=== PATIENT | female | born 1995 | race Asian ===

== ENCOUNTER 2023-02-15 15:56 | Inpatient (IN) ==
--- NOTE | 2023-02-15 16:06 | ED Triage Note ---
Date of Service February 15, 2023 History of Present Illness This patient was briefly evaluated while in triage. An abbreviated physical exam was performed. This patient is a 27-year-old Female who presents to the ED for evaluation of abdominal pain. She notes pain in left side. The pain is spreading into L side and abdomen region. Pain x 2 days but worsened today. She is . No bleeding. She notes burning urination. Currently 7 weeks . Pt is febrile at this time. Physical Exam GENERAL: 27 year old female. In no acute distress. SKIN: No lesions or rashes. HEART: Regular rate and rhythm. LUNGS: Clear to auscultation. ABDOMEN: Bowel sounds normoactive. No tenderness of palpation. NEURO: Alert and oriented. No deficits. MUSCULOSKELETAL: No deformities to inspection of the extremities. PSYCH: Patient is pleasant and answers all questions appropriately. Initial orders for labs and / or imaging were placed and patient was placed in the waiting area until a bed is available. Please see further documentation for the full ED course.
[2023-02-15 17:16] LABS: Adenovirus PCR Not Detected (NotDetected); Bordetella parapertussis PCR Not Detected (NotDetected); Bordetella pertussis PCR Not Detected (NotDetected); Chlamydia pneumoniae PCR Not Detected (NotDetected); Coronavirus 229E PCR Not Detected (NotDetected); Coronavirus CoV-2 (COVID19)PCR Not Detected (NotDetected); Coronavirus HKU1 PCR Not Detected (NotDetected); Coronavirus NL63 PCR Not Detected (NotDetected); Coronavirus OC43PCR Not Detected (NotDetected); Human Metapneumovirus PCR Not Detected (NotDetected); Influenza A PCR Not Detected (NotDetected); Influenza B PCR Not Detected (NotDetected); Mycoplasma pneumoniae PCR Not Detected (NotDetected); Parainfluenza Virus 1 PCR Not Detected (NotDetected); Parainfluenza Virus 2 PCR Not Detected (NotDetected); Parainfluenza Virus 3 PCR Not Detected (NotDetected); Parainfluenza Virus 4 PCR Not Detected (NotDetected); Respiratory Syncytial VirusPCR Not Detected (NotDetected); Rhinovirus/Enterovirus PCR Not Detected (NotDetected)
[2023-02-15 17:50] LABS: Basophils # (auto) 0.01 K/uL (0.00-0.20); Basophils % (auto) 0.1 %; Hemoglobin 12.3 g/dl (12.0-16.0); Immature Granulocytes # (auto) 0.04 K/uL (0.01-0.20); Immature Granulocytes % (auto) 0.3 %; Lymphocytes # (auto) 0.77 K/uL (1.20-3.40); Lymphocytes % (auto) 5.1 %; Mean Corpuscular Hemoglobin 28.8 pg (25.0-34.0); Mean Corpuscular Hgb Conc 34.2 g/dL (32.0-36.0); Mean Corpuscular Volume 84.3 fL (80.0-100.0); Mean Platelet Volume 12.9 fL (9.4-12.4); Monocytes # (auto) 0.99 K/uL (0.11-0.59); Monocytes % (auto) 6.6 %; Neutrophils % (auto) 87.9 %; Platelet Count 156 K/uL (130-400); RDW Coefficient of Variation 13.2 % (11.5-14.5); RDW Standard Deviation 40.7 fL (36.4-46.3); Red Blood Count 4.27 M/uL (4.20-5.40); White Blood Count 15.01 K/ul (4.8-10.8)
[2023-02-15 18:00] LABS: Alanine Aminotransferase 14 U/L (7-52); Albumin Globulin Ratio 1.2 (0.9-2); Albumin Level 4.1 gm/dl (3.4-5.0); Alkaline Phosphatase 59 U/L (34-104); Anion Gap 9 (3-11); Aspartate Aminotransferase 18 U/L (13-39); BUN Creatinine Ratio 9.5 (10-20); Bilirubin,Total 0.6 mg/dl (0.2-1.0); Blood Urea Nitrogen 6 mg/dl (6-23); Calcium 9.3 mg/dl (8.6-10.3); Carbon Dioxide 22 mmol/L (21-32); Chloride 100 mmol/L (98-107); Est GFR (African American) 144.5 ml/min; Est GFR (Non-African American) 124.7 ml/min; Globulin 3.4 gm/dl (2.5-4.0); Glucose 103 mg/dl (70-99(Fasting)); Lipase 4 U/L (11-82); Magnesium 1.8 mg/dl (1.7-2.4); Potassium 3.8 mmol/L (3.5-5.1); Sodium 131 mmol/L (136-145); Total Protein 7.5 gm/dl (6.0-8.3)
[2023-02-15 18:05] LABS: Troponin I High Sensitivity 5.5 pg/ml (0-14)
[2023-02-15 18:11] LABS: INR 1.1 (0.9-1.1); Prothrombin Time 12.1 Seconds (9.0-12.0)
[2023-02-15 18:14] LABS: Thyroid Stimulating Hormone 0.089 uIu/ml (0.300-4.500)
[2023-02-15 18:49] LABS: T4 Free Thyroxine 0.92 ng/dl (0.61-1.60)
--- NOTE | 2023-02-15 18:51 | Ultrasound Report ---
US renal/blad retro comp CLINICAL HISTORY: L flank pain, fever TECHNIQUE: Multiple sonographic real-time images of the kidneys and bladder were obtained. COMPARISON: None available at the time of this dictation. FINDINGS: The right kidney measures 11.3 cm in length, and the left kidney measures 9.7 cm in length. The right kidney is normal in size, contour, cortical thickness, and echogenicity. Pelviectasis is se en without hydronephrosis. No renal lesion is identified. The left kidney is normal in size, contour, cortical thickness and echogenicity. Pelviectasis is see n without hydronephrosis. No renal lesion is identified. The bladder is partially distended. Bilateral jets are seen. IMPRESSION: Unremarkable examination and in particular no evidence of hydronephrosis. ACT 112: Negative or not required by law. Electronically signed by: Tato Danielson M.D. 02/15/2023 6:49 PM
[2023-02-15 18:52] LABS: Appearance Urine Cloudy (Clear); Bacteria Urine Automated 1+ (Negative); Bilirubin Urine Negative (Negative); Blood Urine 1+ (Negative); Color Urine Yellow; Epithelial Cell Urine Auto 0-5 /lpf (0-5); Glucose Urine UA Negative (Negative); Ketones Urine 2+ (Negative); Leukocyte Esterase Urine 3+ (Negative); Nitrite Urine Negative (Negative); Protein Urine Negative (Negative); RBC Urine Automated 0-4 /hpf (0-4); Specific Gravity Urine 1.005 (1.000-1.030); Urobilinogen Urine Negative (Negative); WBC Urine Automated >30 /hpf (0-5)
--- NOTE | 2023-02-15 18:53 | Ultrasound Report ---
US OB <= 14 weeks fetus CLINICAL HISTORY: Fever, , dysuria, L flank pain Technique: Real-time sonographic images of the pelvic contents were obtained with transabdominal and transvaginal technique. COMPARISON: None available at the time of this dictation. FINDINGS: An intrauterine gestational sac measures 2.6 cm in diameter corresponding to a gestational age of 7 w eeks 2 days. And a pole measures 1.3 cm in crown-rump length compatible with gestational age of 7 weeks 4 days. heart rate measures 1 65 bpm. Right ovary is not seen due to overlying bowel. Left ovary measures 3.6 x 3.3 x 3.1 cm with satisfact ory vascular flow. A corpus luteum is noted. IMPRESSION: Single live intrauterine as above. ACT 112: Negative or not required by law. Electronically signed by: Tato Danielson M.D. 02/15/2023 6:52 PM
[2023-02-15] MEDS ORDERED: ACETAMINOPHEN 1,000 MG/100 ML VIAL IV STA (19:22)
[2023-02-15] MEDS ORDERED: SODIUM CHLORIDE 0.9% 1,000 ML IV ONE (19:22)
[2023-02-15] MEDS ORDERED: cefTRIAXone SODIUM 1,000 MG/50 ML BAG IV STA (19:23)
--- NOTE | 2023-02-15 20:40 | History & Physical Report ---
Date of Service February 15, 2023 Assessment & Plan (1) Urinary tract infection: Plan: -Febrile, leukocytosis, tachycardic- meeting SIRS criteria on admission, associated infected urinalysis -Sepsis secondary to suspected urinary source in patient -Ceftriaxone initiated in ER, will continue for now -Renal US negative for ascending infection -UCx, BCx pending -Tylenol 1000 mg q8h for fever control and pain -Currently hemodynamically stable with mild tachycardia to 100s -Monitor CBC (2) Hyponatremia: Plan: -Na 130 on admission -Likely hypovolemic hyponatremia from poor oral intake and emesis losses -S/p 1L NSS bolus in ER -Started on LR maintenance IVF -Monitor BMP (3) Low TSH level: Plan: -TSH 0.089 on admission with fT4 0.92, fT3 3.96 -Suspect subclinical hyperthyroidism in , though with pt's reported history of thyroid abnormality in the past, we will evaluate further -Thyroid antibodies and immunoglobulin pending -Thyroid US ordered -Unclear which medication pt was on in the past for her thyroid issue (possibly methimazole/PTU though these are not routinely given as injections)- will need further clarification (4) : Plan: -HCG 113,026 on admission - US- An intrauterine gestational sac measures 2.6 cm in diameter corresponding to a gestational age of 7 weeks 2 days. And a pole measures 1.3 cm in crown-rump length compatible with gestational age of 7 weeks 4 days. heart rate measures 1 65 bpm. -OB consulted in ED -Transvaginal US pending Plan FENGI: Regular Code status: Full DVT prophylaxis: Low-risk, ambulation Isolation: None Disposition: Medical/surgical History of Present Illness Chief Complaint: Abdominal pain Primary Care Provider: NO PCP Pt is 27 yo EGA 7wks by FTUS presenting with fever and abdominal pain. Pt states she has had ongoing subjective fevers, chills, lower abdominal pain, dysuria, urinary frequency, nausea for past 3-4 days. She did have several bouts of NBNB emesis including 2 today. She has had poor oral intake during this time. She came to ER today due to intolerable pain. Pt arrived to ER tachycardic to 100s-120s and febrile to 38.4 C. Initial evaluation significant for WBC 15, Na 131, TSH 0.089, free T4 0.92, HCG 113,026, UA with +LE, WBCs, bacteria. Renal US wnl, US with single intrauterine . ER interventions include ceftriaxone 1g, Tylenol 1000 mg IV, NSS 1L bolus. At present, pt reports mild improvement in pain since Tylenol administration. She states she had some thyroid cyst/abnormality 3-4 years ago in [facility] for which she was treated with months of medication delivered as injection, believes medication may have started with "P" but cannot recall accurately. Allergies Allergy/AdvReac Type Severity Reaction Status Date / Time No Known Allergies Allergy Unverified 02/15/23 20:17 Home Medications Medication Instructions Recorded Confirmed Type Stomach Settle Gumies 2 tabs PO QAM PRN Nausea 02/15/23 02/15/23 History vit no.95-ferrous 1 tab PO DAILY 02/15/23 02/15/23 History fumarate 28 mg-folic acid 800 mcg tablet () Past Med/Surg History Medical History (Updated 02/16/23 @ 18:21 by Wolfgang Liu DO) No pertinent family history No pertinent past medical history Surgical History (Updated 02/16/23 @ 06:59 by Robina Landis MD) No pertinent past surgical history S/P appendectomy Social History Smoking Status: Never smoker Second Hand Exposure: No; Do You Dip or Chew Tobacco: No; Tobacco Cessation Education Requested by Patient: No Hx Alcohol Use: No Hx Substance Use: No Preferred Language: [place] Leonean Communication Ability: Effective Video Manager Required: No Current Living Situation: Spouse Other Information That Helps Us Care for You: No Feels Safe at Home: Yes Safety Concerns: Feels Safe At This Time Assistive Devices: None Review of Systems Review of Systems: Per HPI/Subjective Physical Exam Physical Exam: General: tired-appearing, no acute distress HEENT: PERRL, EOMI, conjunctivae clear without injection, anicteric sclerae, dry mucous membranes, clear oropharynx without exudate or erythema Neck: supple, trachea midline, no thyromegaly, no JVD, no cervical lymphadenopathy CV: RRR, normal S1 and S2, no murmurs Resp: CTAB, no increased work of breathing, no crackles or wheezes Abd: Soft, tender to periumbilical area and suprapubic area, nondistended, no guarding or rebound, no hepatosplenomegaly MSK: Normal bulk of all four extremities Neuro: AOx3, no focal motor or sensory deficits Skin: no rashes or lesions, warm and dry Ext: no LE peripheral edema or erythema, capillary refill <2s in all four extre mities, 2+ LE peripheral pulses b/l Results & Data Results & Data Vital Signs (Past 12 Hours) Vital Signs Temp Pulse Pulse Resp BP BP Pulse Ox 02/15/23 19:56 109 H 16 112/68 100 02/15/23 16:03 38.4 C H 121 H 16 101/72 92 O2 Del Method 02/15/23 19:56 Room Air 02/15/23 16:03 Room Air Supervising Physician Co-Signing Physician Notes Attending addendum: I have physically seen this patient, have supervised the medical residents activities, and agree with the H&P unless as otherwise noted. Assessment and Plan: Urinary tract infection/7 weeks - Follow urine culture sensitivities Given ceftriaxone 1 g IV in ED, continue daily Continue IV fluids as noted Pelvic ultrasound negative, ultrasound negative, renal ultrasound negative for a sending infection Tylenol 1 g p.o. every 8 hours as needed for mild pain or fever Low TSH level- TSH 0.089, Free T4 0.92 Order thyroid ultrasound Order antithyroid antibody panel Order thyroid-stimulating globulin Patient reports history of being on medications in the past 7-week - OB to see while in hospital Resident Activity Tracking Resident Involvement: Resident Care Provided Care Provided: Adult Hospital Medicine
[2023-02-15] MEDS ORDERED: ONDANSETRON INJ 2 MG/ML 2 ML VIAL IV PRN (21:11)
[2023-02-15] MEDS: LACTATED RINGER'S 1,000 ML IV SCH (22:42)
[2023-02-15] MEDS ORDERED: ACETAMINOPHEN 325 MG TAB PO ONE (23:12)
--- NOTE | 2023-02-16 01:41 | Emergency Department Note ---
History of Present Illness General Chief complaint: Abdominal Pain Stated complaint: abd pain, 7 weeks, vomit Time Seen by Provider: 02/15/23 19:22 History of Present Illness Provider complaint: Abdominal pain dysuria fever nausea vomiting Onset (ago): day(s) 2 Maximum Pain Intensity: 5 27-year-old G1, P0 at 7 weeks gestation presents to the emergency department for fever abdominal pain dysuria nausea and vomiting. Patient's symptoms have been going on for last 2 days. Patient states she cannot keep anything down. She reports that dysuria with burning-like sensation. She reports no pain except for when urinating. She denies any vaginal bleeding. Patient reports suprapubic abdominal discomfort. No flank pain. No chest pain or difficulty breathing. No headache. Home Medications Medication Instructions Recorded Confirmed Type Stomach Settle Gumies 2 tabs PO QAM PRN Nausea 02/15/23 02/15/23 History vit no.95-ferrous 1 tab PO DAILY 02/15/23 02/15/23 History fumarate 28 mg-folic acid 800 mcg tablet () Allergies Allergy/AdvReac Type Severity Reaction Status Date / Time No Known Allergies Allergy Unverified 02/15/23 20:17 Past Med/Surg History Medical History No pertinent family history No pertinent past medical history Surgical History No pertinent past surgical history Social History Smoking Status: Never smoker Second Hand Exposure: No; Do You Dip or Chew Tobacco: No; Tobacco Cessation Education Requested by Patient: No Hx Alcohol Use: No Hx Substance Use: No Preferred Language: Latvian Communication Ability: Effective Fence Supervisor Required: No Current Living Situation: Spouse Other Information That Helps Us Care for You: No Feels Safe at Home: Yes Safety Concerns: Feels Safe At This Time Physical Exam Vital Signs Vital Signs - 24 hr 02/15/23 16:03 02/15/23 19:56 Temperature 38.4 C H Temperature Source Temporal Artery Scan Pulse Rate 121 H Pulse Rate [Apical] 109 H Respiratory Rate 16 16 Respiratory Effort / Characteristics Non-Labored Spontaneous Respiratory Depth Normal Blood Pressure 101/72 Blood Pressure [Left Arm] 112/68 Blood Pressure Mean 81 Blood Pressure Mean [Left Arm] 82 Pulse Oximetry 92 100 Oxygen Delivery Method Room Air Room Air Sepsis Recent Fever Within 48 Hours Yes Sepsis New/Unexplained Change in Mental Status No Sepsis Action Taken by Nursing Physician Notified Physical Exam GENERAL: She is oriented to person, place, and time. She appears well-developed and well-nourished. She does not appear distressed. HENT: Exam performed. -Head: Normocephalic and atraumatic. -Right Ear: External ear normal. No mastoid erythema -Left Ear: External ear normal. No mastoid erythema -Mouth/Throat: The oropharynx is clear and moist. No trismus in the jaw. No dental abscesses or uvula swelling. No oropharyngeal exudate or tonsillar abscesses. EYES: Conjunctivae and EOM are normal.Right eye exhibits no discharge. Left eye exhibits no discharge. No scleral icterus. NECK: Normal range of motion. Neck supple. No JVD present. No tracheal deviation and normal range of motion present. CV: Tachycardic rate, regular rhythm, normal heart sounds and intact distal pulses. There is no peripheral edema. Palpable radial pulses bue. PULM/CHEST: Effort normal and breath sounds normal. No respiratory distress. No stridor. She has no wheezes. She has no rales. -Chest Wall: She exhibits no tenderness. ABD: The abdomen is soft. Bowel sounds are normal. She has no distension. No mass is present. There is no tenderness. There is no rebound, no guarding, no Dyer's sign and no tenderness at McBurney's point. Rovsig negative MUSC/SKEL: Normal range of motion. There is no peripheral edema, tenderness or deformity. NEURO: Motor and sensation grossly intact. SKIN: Skin is warm and dry. She is not diaphoretic. PSYCH: She has a normal mood and affect. Behavior is normal. Judgment and thought content normal. Course Course 1921: The patient was evaluated in room B5. A complete history and physical exam was performed Cardiac monitoring: An order was placed for continuous cardiac monitoring. The monitor shows a rate of 100 with sinus rhythm interpreted by me 1947: Vital signs stable. Labs show leukocytosis of 15.01. Lactic acid is still pending. Urinalysis is concerning for UTI. ultrasound and renal ultrasound within normal limits. Patient states she is unable to keep anything down by mouth. Patient be treated with IV antibiotics. Discussed with pharmacy and stated Rocephin would be safe at this point in the patient's . [facility] . At this point of the patient's , it is thought extremely unlikely that the patient will need any sort of obstetric care, however if the patient develops any obstetric issues while admitted to the hospital, LITHARGE SUPERVIS[employer] Dr. Landis was paged and I made her aware that she will be on routine consult. Patient will be admitted to Dr. Mendoza's team. Administered Medications Lactated Ringer's (Lr) 1,000 mls @ 80 mls/hr IV .[id number] BARB Stop: 02/16/23 22:10 Last Admin: 02/15/23 22:42 Dose: 80 mls/hr Documented By: AVANI Discontinued Medications Acetaminophen (Acetaminophen 325 Mg Tab) 650 mg PO ONCE ONE Stop: 02/15/23 23:13 Last Admin: 02/15/23 23:21 Dose: 650 mg Documented By: AVANI Acetaminophen (Ofirmev) 1,000 mg in 100 mls @ 400 mls/hr IV NOW STA Stop: 02/15/23 19:36 Last Infusion: 02/15/23 20:19 Dose: 0 mls/hr Documented By: Admin: 02/15/23 19:50 Dose: 400 mls/hr Documented By: MELANIE Sodium Chloride (Nss) 1,000 mls @ 999 mls/hr IV .[id number] ONE Stop: 02/15/23 20:22 Last Infusion: 02/15/23 21:05 Dose: 0 mls/hr Documented By: Admin: 02/15/23 19:50 Dose: 999 mls/hr Documented By: MELANIE Ceftriaxone Sodium (Rocephin) 1,000 mg in 50 mls @ 100 mls/hr IV NOW STA Stop: 02/15/23 19:52 Last Infusion: 02/15/23 21:05 Dose: 0 mls/hr Documented By: Admin: 02/15/23 20:18 Dose: 100 mls/hr Documented By: MELANIE Medical Decision Making Laboratory Data Attestation: I reviewed the patient's lab results. 02/15/23 17:06 02/15/23 17:06 Lab Results 02/15/23 02/15/23 02/15/23 Range/Units 16:05 17:06 17:06 WBC 15.01 H (4.8-10.8) K/ul RBC 4.27 (4.20-5.40) M/uL Hgb 12.3 (12.0-16.0) g/dl Hct 36.0 L (37.0-47.0) % MCV 84.3 (80.0-100.0) fL MCH 28.8 (25.0-34.0) pg MCHC 34.2 (32.0-36.0) g/dL RDW Std Deviation 40.7 (36.4-46.3) fL RDW Coeff of Freya 13.2 (11.5-14.5) % Plt Count 156 (130-400) K/uL MPV 12.9 H (9.4-12.4) fL Immature Gran % (Auto) 0.3 % Neut % (Auto) 87.9 % Lymph % (Auto) 5.1 % [place] % (Auto) 6.6 % Eos % (Auto) 0.0 % Baso % (Auto) 0.1 % Neut # (Auto) 13.20 H (1.40-6.50) K/uL Lymph # (Auto) 0.77 L (1.20-3.40) K/uL [place] # (Auto) 0.99 H (0.11-0.59) K/uL Eos # (Auto) 0.00 (0.00-0.50) K/uL Baso # (Auto) 0.01 (0.00-0.20) K/uL Immature Gran # (Auto) 0.04 (0.01-0.20) K/uL PT (9.0-12.0) Seconds INR (0.9-1.1) APTT (21.0-31.0) Seconds PTT Ratio Sodium (136-145) mmol/L Potassium (3.5-5.1) mmol/L Chloride (98-107) mmol/L Carbon Dioxide (21-32) mmol/L Anion Gap (3-11) BUN (6-23) mg/dl Creatinine (0.6-1.2) mg/dl Est Cr Clr Drug Dosing Est GFR ( Amer) ml/min Est GFR (Non-Af Amer) ml/min BUN/Creatinine Ratio (10-20) Glucose (70-99(Fasting)) mg/dl Lactate 1.3 (0.4-2.0) mmol/L Calcium (8.6-10.3) mg/dl Magnesium (1.7-2.4) mg/dl Total Bilirubin (0.2-1.0) mg/dl AST (13-39) U/L ALT (7-52) U/L Alkaline Phosphatase (34-104) U/L Troponin I High Sens (0-14) pg/ml Total Protein (6.0-8.3) gm/dl Albumin (3.4-5.0) gm/dl Globulin (2.5-4.0) gm/dl Albumin/Globulin Ratio (0.9-2) Lipase (11-82) U/L Procalcitonin (0-0.5) ng/ml TSH (0.300-4.500) uIu/ml Free T4 (0.61-1.60) ng/dl Free T3 (2.3-4.2) pg/ml HCG, Quant mIU/ml Urine Color Urine Appearance (Clear) Urine pH (4.5-7.5) Ur Specific [place] (1.000-1.030) Urine Protein (Negative) Urine Glucose (UA) (Negative) Urine Ketones (Negative) Urine Blood (Negative) Urine Nitrite (Negative) Urine Bilirubin (Negative) Urine Urobilinogen (Negative) Ur Leukocyte Esterase (Negative) Urine WBC (Auto) (0-5) /hpf Urine RBC (Auto) (0-4) /hpf U Hyaline Cast (Auto) (0-5) /lpf U Epithel Cells (Auto) (0-5) /lpf Urine Bacteria (Auto) (Negative) Adenovirus (PCR) Not Detected (NotDetected) B. pertussis DNA (PCR) Not Detected (NotDetected) B.parapertussis DNA PCR Not Detected (NotDetected) C. pneumoniae DNA (PCR) Not Detected (NotDetected) Coronavirus OC43 (PCR) Not Detected (NotDetected) Coronavirus HKU1 (PCR) Not Detected (NotDetected) Coronavirus 229E (PCR) Not Detected (NotDetected) SARS-CoV-2 (PCR) Not Detected (NotDetected) Coronavirus NL63 (PCR) Not Detected (NotDetected) Human Metapneumovir PCR Not Detected (NotDetected) Influenza Type A (PCR) Not Detected (NotDetected) Influenza Type B (PCR) Not Detected (NotDetected) M. pneumoniae (PCR) Not Detected (NotDetected) Parainfluenza 1 (PCR) Not Detected (NotDetected) Parainfluenza 2 (PCR) Not Detected (NotDetected) Parainfluenza 3 (PCR) Not Detected (NotDetected) Parainfluenza 4 (PCR) Not Detected (NotDetected) RSV (PCR) Not Detected (NotDetected) Entero/Rhino (PCR) Not Detected (NotDetected) 02/15/23 02/15/23 02/15/23 Range/Units 17:06 17:06 17:06 WBC (4.8-10.8) K/ul RBC (4.20-5.40) M/uL Hgb (12.0-16.0) g/dl Hct (37.0-47.0) % MCV (80.0-100.0) fL MCH (25.0-34.0) pg MCHC (32.0-36.0) g/dL RDW Std Deviation (36.4-46.3) fL RDW Coeff of Freya (11.5-14.5) % Plt Count (130-400) K/uL MPV (9.4-12.4) fL Immature Gran % (Auto) % Neut % (Auto) % Lymph % (Auto) % [place] % (Auto) % Eos % (Auto) % Baso % (Auto) % Neut # (Auto) (1.40-6.50) K/uL Lymph # (Auto) (1.20-3.40) K/uL [place] # (Auto) (0.11-0.59) K/uL Eos # (Auto) (0.00-0.50) K/uL Baso # (Auto) (0.00-0.20) K/uL Immature Gran # (Auto) (0.01-0.20) K/uL PT 12.1 H (9.0-12.0) Seconds INR 1.1 (0.9-1.1) APTT 27.0 (21.0-31.0) Seconds PTT Ratio 1.0 Sodium 131 L (136-145) mmol/L Potassium 3.8 (3.5-5.1) mmol/L Chloride 100 (98-107) mmol/L Carbon Dioxide 22 (21-32) mmol/L Anion Gap 9 (3-11) BUN 6 (6-23) mg/dl Creatinine 0.63 (0.6-1.2) mg/dl Est Cr Clr Drug Dosing Not Reportable Est GFR ( Amer) 144.5 ml/min Est GFR (Non-Af Amer) 124.7 ml/min BUN/Creatinine Ratio 9.5 L (10-20) Glucose 103 H (70-99(Fasting)) mg/dl Lactate (0.4-2.0) mmol/L Calcium 9.3 (8.6-10.3) mg/dl Magnesium 1.8 (1.7-2.4) mg/dl Total Bilirubin 0.6 (0.2-1.0) mg/dl AST 18 (13-39) U/L ALT 14 (7-52) U/L Alkaline Phosphatase 59 (34-104) U/L Troponin I High Sens 5.5 (0-14) pg/ml Total Protein 7.5 (6.0-8.3) gm/dl Albumin 4.1 (3.4-5.0) gm/dl Globulin 3.4 (2.5-4.0) gm/dl Albumin/Globulin Ratio 1.2 (0.9-2) Lipase 4 L (11-82) U/L Procalcitonin (0-0.5) ng/ml TSH 0.089 L (0.300-4.500) uIu/ml Free T4 0.92 (0.61-1.60) ng/dl Free T3 (2.3-4.2) pg/ml HCG, Quant 522680 mIU/ml Urine Color Urine Appearance (Clear) Urine pH (4.5-7.5) Ur Specific [place] (1.000-1.030) Urine Protein (Negative) Urine Glucose (UA) (Negative) Urine Ketones (Negative) Urine Blood (Negative) Urine Nitrite (Negative) Urine Bilirubin (Negative) Urine Urobilinogen (Negative) Ur Leukocyte Esterase (Negative) Urine WBC (Auto) (0-5) /hpf Urine RBC (Auto) (0-4) /hpf U Hyaline Cast (Auto) (0-5) /lpf U Epithel Cells (Auto) (0-5) /lpf Urine Bacteria (Auto) (Negative) Adenovirus (PCR) (NotDetected) B. pertussis DNA (PCR) (NotDetected) B.parapertussis DNA PCR (NotDetected) C. pneumoniae DNA (PCR) (NotDetected) Coronavirus OC43 (PCR) (NotDetected) Coronavirus HKU1 (PCR) (NotDetected) Coronavirus 229E (PCR) (NotDetected) SARS-CoV-2 (PCR) (NotDetected) Coronavirus NL63 (PCR) (NotDetected) Human Metapneumovir PCR (NotDetected) Influenza Type A (PCR) (NotDetected) Influenza Type B (PCR) (NotDetected) M. pneumoniae (PCR) (NotDetected) Parainfluenza 1 (PCR) (NotDetected) Parainfluenza 2 (PCR) (NotDetected) Parainfluenza 3 (PCR) (NotDetected) Parainfluenza 4 (PCR) (NotDetected) RSV (PCR) (NotDetected) Entero/Rhino (PCR) (NotDetected) 02/15/23 02/15/23 02/15/23 Range/Units 17:06 17:06 18:30 WBC (4.8-10.8) K/ul RBC (4.20-5.40) M/uL Hgb (12.0-16.0) g/dl Hct (37.0-47.0) % MCV (80.0-100.0) fL MCH (25.0-34.0) pg MCHC (32.0-36.0) g/dL RDW Std Deviation (36.4-46.3) fL RDW Coeff of Freya (11.5-14.5) % Plt Count (130-400) K/uL MPV (9.4-12.4) fL Immature Gran % (Auto) % Neut % (Auto) % Lymph % (Auto) % [place] % (Auto) % Eos % (Auto) % Baso % (Auto) % Neut # (Auto) (1.40-6.50) K/uL Lymph # (Auto) (1.20-3.40) K/uL [place] # (Auto) (0.11-0.59) K/uL Eos # (Auto) (0.00-0.50) K/uL Baso # (Auto) (0.00-0.20) K/uL Immature Gran # (Auto) (0.01-0.20) K/uL PT (9.0-12.0) Seconds INR (0.9-1.1) APTT (21.0-31.0) Seconds PTT Ratio Sodium (136-145) mmol/L Potassium (3.5-5.1) mmol/L Chloride (98-107) mmol/L Carbon Dioxide (21-32) mmol/L Anion Gap (3-11) BUN (6-23) mg/dl Creatinine (0.6-1.2) mg/dl Est Cr Clr Drug Dosing Est GFR ( Amer) ml/min Est GFR (Non-Af Amer) ml/min BUN/Creatinine Ratio (10-20) Glucose (70-99(Fasting)) mg/dl Lactate (0.4-2.0) mmol/L Calcium (8.6-10.3) mg/dl Magnesium (1.7-2.4) mg/dl Total Bilirubin (0.2-1.0) mg/dl AST (13-39) U/L ALT (7-52) U/L Alkaline Phosphatase (34-104) U/L Troponin I High Sens (0-14) pg/ml Total Protein (6.0-8.3) gm/dl Albumin (3.4-5.0) gm/dl Globulin (2.5-4.0) gm/dl Albumin/Globulin Ratio (0.9-2) Lipase (11-82) U/L Procalcitonin 0.13 (0-0.5) ng/ml TSH (0.300-4.500) uIu/ml Free T4 (0.61-1.60) ng/dl Free T3 3.96 (2.3-4.2) pg/ml HCG, Quant mIU/ml Urine Color Yellow Urine Appearance Cloudy A (Clear) Urine pH 6.0 (4.5-7.5) Ur Specific [place] 1.005 (1.000-1.030) Urine Protein Negative (Negative) Urine Glucose (UA) Negative (Negative) Urine Ketones 2+ H (Negative) Urine Blood 1+ H (Negative) Urine Nitrite Negative (Negative) Urine Bilirubin Negative (Negative) Urine Urobilinogen Negative (Negative) Ur Leukocyte Esterase 3+ H (Negative) Urine WBC (Auto) >30 H (0-5) /hpf Urine RBC (Auto) 0-4 (0-4) /hpf U Hyaline Cast (Auto) 1-5 (0-5) /lpf U Epithel Cells (Auto) 0-5 (0-5) /lpf Urine Bacteria (Auto) 1+ H (Negative) Adenovirus (PCR) (NotDetected) B. pertussis DNA (PCR) (NotDetected) B.parapertussis DNA PCR (NotDetected) C. pneumoniae DNA (PCR) (NotDetected) Coronavirus OC43 (PCR) (NotDetected) Coronavirus HKU1 (PCR) (NotDetected) Coronavirus 229E (PCR) (NotDetected) SARS-CoV-2 (PCR) (NotDetected) Coronavirus NL63 (PCR) (NotDetected) Human Metapneumovir PCR (NotDetected) Influenza Type A (PCR) (NotDetected) Influenza Type B (PCR) (NotDetected) M. pneumoniae (PCR) (NotDetected) Parainfluenza 1 (PCR) (NotDetected) Parainfluenza 2 (PCR) (NotDetected) Parainfluenza 3 (PCR) (NotDetected) Parainfluenza 4 (PCR) (NotDetected) RSV (PCR) (NotDetected) Entero/Rhino (PCR) (NotDetected) 02/15/23 Range/Units 19:40 WBC (4.8-10.8) K/ul RBC (4.20-5.40) M/uL Hgb (12.0-16.0) g/dl Hct (37.0-47.0) % MCV (80.0-100.0) fL MCH (25.0-34.0) pg MCHC (32.0-36.0) g/dL RDW Std Deviation (36.4-46.3) fL RDW Coeff of Freya (11.5-14.5) % Plt Count (130-400) K/uL MPV (9.4-12.4) fL Immature Gran % (Auto) % Neut % (Auto) % Lymph % (Auto) % [place] % (Auto) % Eos % (Auto) % Baso % (Auto) % Neut # (Auto) (1.40-6.50) K/uL Lymph # (Auto) (1.20-3.40) K/uL [place] # (Auto) (0.11-0.59) K/uL Eos # (Auto) (0.00-0.50) K/uL Baso # (Auto) (0.00-0.20) K/uL Immature Gran # (Auto) (0.01-0.20) K/uL PT (9.0-12.0) Seconds INR (0.9-1.1) APTT (21.0-31.0) Seconds PTT Ratio Sodium (136-145) mmol/L Potassium (3.5-5.1) mmol/L Chloride (98-107) mmol/L Carbon Dioxide (21-32) mmol/L Anion Gap (3-11) BUN (6-23) mg/dl Creatinine (0.6-1.2) mg/dl Est Cr Clr Drug Dosing Est GFR ( Amer) ml/min Est GFR (Non-Af Amer) ml/min BUN/Creatinine Ratio (10-20) Glucose (70-99(Fasting)) mg/dl Lactate 1.3 (0.4-2.0) mmol/L Calcium (8.6-10.3) mg/dl Magnesium (1.7-2.4) mg/dl Total Bilirubin (0.2-1.0) mg/dl AST (13-39) U/L ALT (7-52) U/L Alkaline Phosphatase (34-104) U/L Troponin I High Sens (0-14) pg/ml Total Protein (6.0-8.3) gm/dl Albumin (3.4-5.0) gm/dl Globulin (2.5-4.0) gm/dl Albumin/Globulin Ratio (0.9-2) Lipase (11-82) U/L Procalcitonin (0-0.5) ng/ml TSH (0.300-4.500) uIu/ml Free T4 (0.61-1.60) ng/dl Free T3 (2.3-4.2) pg/ml HCG, Quant mIU/ml Urine Color Urine Appearance (Clear) Urine pH (4.5-7.5) Ur Specific [place] (1.000-1.030) Urine Protein (Negative) Urine Glucose (UA) (Negative) Urine Ketones (Negative) Urine Blood (Negative) Urine Nitrite (Negative) Urine Bilirubin (Negative) Urine Urobilinogen (Negative) Ur Leukocyte Esterase (Negative) Urine WBC (Auto) (0-5) /hpf Urine RBC (Auto) (0-4) /hpf U Hyaline Cast (Auto) (0-5) /lpf U Epithel Cells (Auto) (0-5) /lpf Urine Bacteria (Auto) (Negative) Adenovirus (PCR) (NotDetected) B. pertussis DNA (PCR) (NotDetected) B.parapertussis DNA PCR (NotDetected) C. pneumoniae DNA (PCR) (NotDetected) Coronavirus OC43 (PCR) (NotDetected) Coronavirus HKU1 (PCR) (NotDetected) Coronavirus 229E (PCR) (NotDetected) SARS-CoV-2 (PCR) (NotDetected) Coronavirus NL63 (PCR) (NotDetected) Human Metapneumovir PCR (NotDetected) Influenza Type A (PCR) (NotDetected) Influenza Type B (PCR) (NotDetected) M. pneumoniae (PCR) (NotDetected) Parainfluenza 1 (PCR) (NotDetected) Parainfluenza 2 (PCR) (NotDetected) Parainfluenza 3 (PCR) (NotDetected) Parainfluenza 4 (PCR) (NotDetected) RSV (PCR) (NotDetected) Entero/Rhino (PCR) (NotDetected) Imaging Data Radiologist's Impression: Ultrasound 02/15/23 16:06 US OB <= 14 weeks fetus CLINICAL HISTORY: Fever, , dysuria, L flank pain Technique: Real-time sonographic images of the pelvic contents were obtained with transabdominal and transvaginal technique. COMPARISON: None available at the time of this dictation. FINDINGS: An intrauterine gestational sac measures 2.6 cm in diameter corresponding to a gestational age of 7 weeks 2 days. And a pole measures 1.3 cm in crown- rump length compatible with gestational age of 7 weeks 4 days. heart rate measures 1 65 bpm. Right ovary is not seen due to overlying bowel. Left ovary measures 3.6 x 3.3 x 3.1 cm with satisfactory vascular flow. A corpus luteum is noted. IMPRESSION: Single live intrauterine as above. ACT 112: Negative or not required by law. Electronically signed by: Tato Danielson M.D. 02/15/2023 6:52 PM Renal Ultrasound 02/15/23 16:06 US renal/blad retro comp CLINICAL HISTORY: L flank pain, fever TECHNIQUE: Multiple sonographic real-time images of the kidneys and bladder were obtained. COMPARISON: None available at the time of this dictation. FINDINGS: The right kidney measures 11.3 cm in length, and the left kidney measures 9.7 cm in length. The right kidney is normal in size, contour, cortical thickness, and echogenicity. Pelviectasis is seen without hydronephrosis. No renal lesion is i dentified. The left kidney is normal in size, contour, cortical thickness and echogenicity. Pelviectasis is seen without hydronephrosis. No renal lesion is identified. The bladder is partially distended. Bilateral jets are seen. IMPRESSION: Unremarkable examination and in particular no evidence of hydronephrosis. ACT 112: Negative or not required by law. Electronically signed by: Tato Danielson M.D. 02/15/2023 6:49 PM [facility] Narrative 192: The patient was evaluated in room B5. A complete history and physical exam was performed Cardiac monitoring: An order was placed for continuous cardiac monitoring. The monitor shows a rate of 100 with sinus rhythm interpreted by me 1947: Vital signs stable. Labs show leukocytosis of 15.01. Lactic acid is still pending. Urinalysis is concerning for UTI. ultrasound and renal ultrasound within normal limits. Patient states she is unable to keep anything down by mouth. Patient be treated with IV antibiotics. Discussed with pharmacy and stated Rocephin would be safe at this point in the patient's . [facility] . At this point of the patient's , it is thought e xtremely unlikely that the patient will need any sort of obstetric care, however if the patient develops any obstetric issues while admitted to the hospital, L[employer]ARGE SUPERVIS[employer] Dr. Landis was paged and I made her aware that she will be on routine consult. Patient will be admitted to Dr. Mendoza's team. Impression & Plan Urinary tract infection, Discharge Plan Visit Data Chief Complaint: Abdominal Pain Stated Complaint: abd pain, 7 weeks, vomit ED Provider: David Roberto Discharge Problem: Urinary tract infection, Patient Disposition: Admitted As Inpatient Discharge Instructions Interventions: ED Discharge Assessment Last Done: 02/15/23 21:47
[2023-02-16] MEDS: ACETAMINOPHEN 325 MG TAB PO SCH ×3 (05:07→20:29)
[2023-02-16] MEDS ORDERED: ACETAMINOPHEN 500 MG TAB PO SCH (06:00)
[2023-02-16 06:59] LABS: Hemoglobin 10.6 g/dl (12.0-16.0); Mean Corpuscular Hemoglobin 29.1 pg (25.0-34.0); Mean Corpuscular Hgb Conc 34.2 g/dL (32.0-36.0); Mean Corpuscular Volume 85.2 fL (80.0-100.0); Mean Platelet Volume 13.2 fL (9.4-12.4); Platelet Count 124 K/uL (130-400); RDW Coefficient of Variation 13.2 % (11.5-14.5); RDW Standard Deviation 40.8 fL (36.4-46.3); Red Blood Count 3.64 M/uL (4.20-5.40); White Blood Count 21.38 K/ul (4.8-10.8)
--- NOTE | 2023-02-16 07:05 | OB/GYN Consultation ---
Date of Consultation February 16, 2023 Assessment & Plan (1) : Routine care as scheduled. Continue vitamin with folic acid and health diet / habits. Management of UTI vs pyelonephritis per primary team, agree with inpt antibiotic therapy as prescribed. Appreciate workup of thyroid lab anomaly but as pt was counseled by med team, may well turner in to be clinically inconsequential. There is no need for monitoring or other special considerations due to the ; we will sign off and will be happy to assist with any questions that arise. History of Present Illness Attending Physician: Riley Chamberlain MD History of Present Illness 27yo who presented to ER with UTI symptoms and was admitted overnight for suspected pyelonephritis, given leukocytosis and fever. OB is consulted for . Patient states she is taking a PNV, has nausea which she manages with husam sudarshan and candies but does not require medications, and she denies any VB or pelvic pain. She had a ultrasound in the ER which confirmed a viable SIUP at 7w4d yesterday. She is scheduled to have nurse intake OB visit at our office next week. Labs were reviewed and show only a mild subclinical hyperthyroidism (TSH 0.089, FT3/FT4 WNL) which is often normal in the first trimester. Due to an unclear history of prior thyroid disease [place] patient, medicine team is investigating further with antithyroid antibody testing and ultrasound. Allergies Allergy/AdvReac Type Severity Reaction Status Date / Time No Known Allergies Allergy Unverified 02/15/23 20:17 Home Medications Medication Instructions Recorded Confirmed Type Stomach Settle Gumies 2 tabs PO QAM PRN Nausea 02/15/23 02/15/23 History vit no.95-ferrous 1 tab PO DAILY 02/15/23 02/15/23 History fumarate 28 mg-folic acid 800 mcg tablet () Patient History Medical History No pertinent family history No pertinent past medical history Surgical History (Updated 02/16/23 @ 06:59 by Robina Landis MD) No pertinent past surgical history S/P appendectomy Social History Smoking Status: Never smoker Second Hand Exposure: No; Do You Dip or Chew Tobacco: No; Tobacco Cessation Education Requested by Patient: No Hx Alcohol Use: No Hx Substance Use: No Preferred Language: Guatemalan Communication Ability: Effective 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 Constitutional: WD/WN, vitals as above Eyes: PERRL, conjunctivae normal, anicteric sclerae ENMT: Ears: no hearing impairment and no external ear abnormality Nose: no external nose abnormality Mouth: no lip abnormality Neck: trachea midline, no thyromegaly normal visual inspection Respiratory: normal respiratory effort and able to speak in complete sentences; no respiratory distress and no labored breathing Cardiovascular: Rate/Rhythm: regular rate and regular rhythm Extremities: no edema Chest (Breasts): Additional Comments: clothed observation, appears normal age-appropriate breast development Gastrointestinal (Abdomen): Soft, nontender to palpation, no mass / fundus nonpalpable c/w gestational age. Scar c/w known prior appendectomy in childhoood. Musculoskeletal: Head/Neck/Chest: normocephalic and head atraumatic Extremities: extremities normal to inspection Skin: no rashes, warm and dry Neurologic: PERRL, EOMI, accommodation nl, no face palsy, no dysarthria awake Motor/Sensory: normal movement Psychiatric: A+Ox3, euthymic affect Genitourinary: not performed, not indicated Results & Data Vital Signs (Past 12 Hours) Vital Signs Temp Pulse Resp BP Pulse Ox O2 Del Method 02/16/23 04:25 98.6 F 98 H 16 103/84 100 Room Air 02/15/23 22:12 98.1 F 90 16 92/59 L 99 Room Air 02/15/23 21:30 99.1 F 88 16 103/65 99 Room Air 02/15/23 19:56 109 H 16 112/68 100 Room Air PG Care Time/CCT Total # of Minutes Spent Total Time Spent with Patient: Total time spent is greater than 50% in coordination of care (as documented) at patient's floor/unit and/or counseling patient: Coding Level of Care Code None Diagnoses Z34.90
[2023-02-16 07:27] LABS: Alanine Aminotransferase 10 U/L (7-52); Albumin Globulin Ratio 1.2 (0.9-2); Albumin Level 3.2 gm/dl (3.4-5.0); Alkaline Phosphatase 53 U/L (34-104); Anion Gap 5 (3-11); Aspartate Aminotransferase 12 U/L (13-39); BUN Creatinine Ratio 10.4 (10-20); Bilirubin,Total 0.6 mg/dl (0.2-1.0); Blood Urea Nitrogen 5 mg/dl (6-23); Calcium 8.3 mg/dl (8.6-10.3); Carbon Dioxide 20 mmol/L (21-32); Chloride 106 mmol/L (98-107); Creatinine Clr Calc Pharmacy 152.7 ml/min; Est GFR (African American) > 150.0 ml/min; Est GFR (Non-African American) 136.3 ml/min; Globulin 2.6 gm/dl (2.5-4.0); Glucose 126 mg/dl (70-99(Fasting)); Potassium 3.3 mmol/L (3.5-5.1); Sodium 131 mmol/L (136-145); Total Protein 5.8 gm/dl (6.0-8.3)
[2023-02-16] MEDS ORDERED: LACTATED RINGER'S 1,000 ML IV ONE ×2 (08:11→20:08)
[2023-02-16] MEDS: PRENATAL VITAMIN 1 TAB PO SCH (08:34)
[2023-02-16] MEDS: LACTATED RINGER'S 1,000 ML IV SCH (12:34)
--- NOTE | 2023-02-16 14:40 | Electrocardiogram Report ---
Test Reason : Blood Pressure : / mmHG Vent. Rate : 111 BPM Atrial Rate : 111 BPM P-R Int : 126 ms QRS Dur : 078 ms QT Int : 324 ms P-R-T Axes : 073 062 048 degrees QTc Int : 440 ms Sinus tachycardia Possible Left atrial enlargement RSR' or QR pattern in V1 suggests right ventricular conduction delay Borderline ECG No previous ECGs available Confirmed by Martin Sexton ([id number]) on 02/16/2023 2:40:22 PM Referred By: REFERRED SELF Confirmed By:Martin Sexton
--- NOTE | 2023-02-16 15:35 | Ultrasound Report ---
THYROID ULTRASOUND HISTORY: Abnormal thyroid labs, 7week COMPARISON: None. FINDINGS: Right lobe: 45 x 12 x 8 mm. There is a 7 x 4 x 3 mm partially cystic nodule within the lower pole. Th is does not meet sonographic criteria for biopsy. Left lobe: 44 x 12 x 1 cm. There is a predominantly solid heterogeneous 15 x 12 x 1 mm lower pole nod ule. This is wider than tall. No microcalcifications identified. Isthmus: 2 mm in thickness. No nodules. IMPRESSION: A 15 mm left thyroid nodule. Follow-up nonemergent ultrasound fine-needle aspiration recommended for further evaluation. ACT 112: Negative or not required by law. Electronically signed by: Gee Mahajan M.D. 02/16/2023 3:34 PM
--- NOTE | 2023-02-16 18:24 | Hospitalist Progress Note ---
Date of Service February 16, 2023 Assessment & Plan (1) Pyelonephritis: Plan: Pyelonephritis with sepsis present on admissiondoes appear to be improving, however, given that she was quite ill with clinically what appears to be a pyelonephritis (urinary tract infection with flank pain and nausea as well as overall septic appearance)I am not surprised that she is still spiking temps off and on through the day and her white count went upcontinue ceftriaxone for now, as she does not appear consistent with severe sepsis/septic shockawait sensitivitiescurrently urine is growing gram-negative rods so I expect we will have final cultures available in the next 24 hours. Continue IV fluids and supportive care. 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 Follow thyroid function test periodically. Antibodies pending, nodule on ultrasound is also of questionable significance, but is greater than a centimeter so should have FNA at some point in the future. (3) DVT prophylaxis: Plan: Ambulation (4) Discharge planning issues: Plan: Anticipate home as long as it is clear that her sepsis is improving and we have sensitivities to reliably send her home on oral antibiotics. Admission and Anticipated Discharge Date Admission Date: February 15, 2023 Subjective In discussion with nursing, having some ups and downs of fatigue weakness and fevers all day, whenever I see her she notes she is definitely feeling better than yesterday. Overall improved. present as well and answered all questions to the best my ability and to their satisfaction. Nausea is improving as well. This is their first . Review of Systems Review of Systems: All systems reviewed & are unremarkable except as noted in HPI & below Physical Exam Physical Exam: In general she is awake and alert pleasant no distress. Quite fatigued. HEENT normocephalic atraumatic mucous membranes moist. Breathing unlabored no accessory muscle use good effort. Skin shows no rashes no pallor or icterus. Neuro without focal deficits. Results & Data Results & Data Vital Signs (Past 12 Hours) Vital Signs Temp Pulse Pulse Resp BP Pulse Ox O2 Del Method 02/16/23 16:22 99.3 F 97 H 17 107/74 02/16/23 15:44 102.0 F H 105 H 16 95/64 L 99 Room Air 02/16/23 13:37 98.6 F 92 H 17 100 Room Air 02/16/23 11:56 102.0 F H 110 H 02/16/23 10:23 111 H 17 103/68 99 Room Air 02/16/23 07:45 Room Air 02/16/23 08:05 98.2 F 86 16 94/62 L 100 Room Air PG Care Time/CCT Total # of Minutes Spent Total Time Spent with Patient: Total time spent is greater than 50% in coordination of care (as documented) at patient's floor/unit and/or counseling patient: Coding Level of Care Code 77604 SUB INP/OBS CARE 3/50MIN Diagnoses Pyelonephritis N12 Thyroid nodule E04.1 DVT prophylaxis Z29.9 Discharge planning issues Z02.9
--- NOTE | 2023-02-16 18:42 | Billing Data ---
Date of Service February 16, 2023 Coding Level of Care Code 39238 INT INP/OBS CARE
[2023-02-16] MEDS: cefTRIAXone SODIUM 1,000 MG in DEXTROSE 5 % MINI-B 50 ML IV SCH (20:30)
[2023-02-17] MEDS: ACETAMINOPHEN 325 MG TAB PO SCH ×4 (01:56→19:29)
[2023-02-17 08:06] LABS: Basophils # (auto) 0.01 K/uL (0.00-0.20); Basophils % (auto) 0.1 %; Eosinophils # (auto) 0.04 K/uL (0.00-0.50); Eosinophils % (auto) 0.3 %; Hematocrit (blood only) 30.8 % (37.0-47.0); Hemoglobin 10.2 g/dl (12.0-16.0); Immature Granulocytes # (auto) 0.06 K/uL (0.01-0.20); Immature Granulocytes % (auto) 0.5 %; Lymphocytes # (auto) 1.28 K/uL (1.20-3.40); Lymphocytes % (auto) 10.3 %; Mean Corpuscular Hemoglobin 28.6 pg (25.0-34.0); Mean Corpuscular Hgb Conc 33.1 g/dL (32.0-36.0); Mean Corpuscular Volume 86.3 fL (80.0-100.0); Mean Platelet Volume 12.9 fL (9.4-12.4); Monocytes # (auto) 1.18 K/uL (0.11-0.59); Monocytes % (auto) 9.5 %; Neutrophils # (auto) 9.89 K/uL (1.40-6.50); Neutrophils % (auto) 79.3 %; Platelet Count 113 K/uL (130-400); RDW Coefficient of Variation 13.4 % (11.5-14.5); Red Blood Count 3.57 M/uL (4.20-5.40); White Blood Count 12.46 K/ul (4.8-10.8)
[2023-02-17] MEDS: PRENATAL VITAMIN 1 TAB PO SCH (08:17)
[2023-02-17 08:20] LABS: Anion Gap 4 (3-11); BUN Creatinine Ratio 10.6 (10-20); Blood Urea Nitrogen 5 mg/dl (6-23); Calcium 8.4 mg/dl (8.6-10.3); Carbon Dioxide 24 mmol/L (21-32); Chloride 110 mmol/L (98-107); Est GFR (African American) > 150.0 ml/min; Est GFR (Non-African American) 137.3 ml/min; Glucose 103 mg/dl (70-99(Fasting)); Potassium 3.6 mmol/L (3.5-5.1); Sodium 138 mmol/L (136-145)
--- NOTE | 2023-02-17 19:22 | Hospitalist Progress Note ---
Date of Service February 17, 2023 Assessment & Plan (1) Urinary tract infection: Plan: -Febrile, leukocytosis, tachycardic- meeting SIRS criteria on admission, associated infected urinalysis -Sepsis secondary to suspected urinary source in patient -Ceftriaxone initiated in ER, will continue for nowShowing improvement -Renal US negative for ascending infection - Urine culture showing gram-negative rodscalled microbiology lab and unfortunately they had to reculturetherefore final results not yet available. Blood cultures no growth to date. (2) Hyponatremia: Plan: - resolved (3) Low TSH level: Plan: - suspect normal related low TSH. Outpatient follow-up. Nodule noted and discussed with patientshe notes that [facility] discussed that if it was the same nodule and its the same size, she may not need another biopsy, but we will need to obtain records, ot erwise default plan would be since it is greater than a centimeter and FNA should be done at some point, although certainly not urgently. (4) : Plan: Ultrasound reassuring Plan FENGI: Regular Code status: Full DVT prophylaxis: Low-risk, ambulation Isolation: None Disposition: Medical/surgical, hopefully home soon Admission and Anticipated Discharge Date Admission Date: February 15, 2023 Subjective feeling better but still not great. Less pain and nausea but still poor appetite. Still feels weak overall. A little nervous about intermittent fevers and chills. Answered all questions to the best my ability and to patient and 's satisfaction Review of Systems Review of Systems: All systems reviewed & are unremarkable except as noted in HPI & below Physical Exam Physical Exam: in general she is awake and alert pleasant fatigued but less than yesterday, no distress. HEENT normocephalic atraumatic mucous membranes moist. Breathing unlabored no accessory muscle use good effort. Skin shows no rashes no pallor or icterus. No CVA tenderness. Results & Data Results & Data Vital Signs (Past 12 Hours) Vital Signs Temp Pulse Resp BP Pulse Ox O2 Del Method 02/17/23 15:26 98.4 F 87 18 98/66 L 100 Room Air 02/17/23 07:45 Room Air 02/17/23 07:56 84 98/65 L 02/17/23 07:45 98.1 F 86 18 89/60 L 100 Room Air PG Care Time/CCT Total # of Minutes Spent Total Time Spent with Patient: Total time spent is greater than 50% in coordination of care (as documented) at patient's floor/unit and/or counseling patient: Coding Level of Care Code 32649 SUB INP/OBS CARE 3/50MIN Diagnoses Urinary tract infection N39.0 Hyponatremia E87.1 Low TSH level R79.89 Z34.90
[2023-02-17] MEDS: cefTRIAXone SODIUM 1,000 MG in DEXTROSE 5 % MINI-B 50 ML IV SCH (19:30)
[2023-02-18] MEDS: ACETAMINOPHEN 325 MG TAB PO SCH ×2 (01:51→08:59)
--- NOTE | 2023-02-18 07:24 | Electrocardiogram Report ---
Test Reason : Blood Pressure : / mmHG Vent. Rate : 100 BPM Atrial Rate : 100 BPM P-R Int : 106 ms QRS Dur : 080 ms QT Int : 322 ms P-R-T Axes : 056 055 044 degrees QTc Int : 415 ms Sinus rhythm with short CO Otherwise normal ECG When compared with ECG of 15-FEB-2023 17:22, No significant change was found Confirmed by Trino Marie ([id number]) on 02/18/2023 7:24:33 AM Referred By: REFERRED SELF Confirmed By:Trino Marie
[2023-02-18 07:56] LABS: Basophils # (auto) 0.01 K/uL (0.00-0.20); Basophils % (auto) 0.1 %; Eosinophils # (auto) 0.08 K/uL (0.00-0.50); Hematocrit (blood only) 29.9 % (37.0-47.0); Hemoglobin 10.2 g/dl (12.0-16.0); Immature Granulocytes # (auto) 0.02 K/uL (0.01-0.20); Immature Granulocytes % (auto) 0.3 %; Lymphocytes # (auto) 1.72 K/uL (1.20-3.40); Lymphocytes % (auto) 21.6 %; Mean Corpuscular Hemoglobin 28.9 pg (25.0-34.0); Mean Corpuscular Hgb Conc 34.1 g/dL (32.0-36.0); Mean Corpuscular Volume 84.7 fL (80.0-100.0); Mean Platelet Volume 13.6 fL (9.4-12.4); Monocytes # (auto) 0.95 K/uL (0.11-0.59); Monocytes % (auto) 11.9 %; Neutrophils # (auto) 5.19 K/uL (1.40-6.50); Neutrophils % (auto) 65.1 %; Platelet Count 137 K/uL (130-400); RDW Coefficient of Variation 13.7 % (11.5-14.5); RDW Standard Deviation 42.5 fL (36.4-46.3); Red Blood Count 3.53 M/uL (4.20-5.40); White Blood Count 7.97 K/ul (4.8-10.8)
[2023-02-18 08:02] LABS: Anion Gap 7 (3-11); BUN Creatinine Ratio 14.6 (10-20); Blood Urea Nitrogen 6 mg/dl (6-23); Calcium 8.3 mg/dl (8.6-10.3); Carbon Dioxide 21 mmol/L (21-32); Chloride 109 mmol/L (98-107); Creatinine Clr Calc Pharmacy 178.8 ml/min; Est GFR (African American) > 150.0 ml/min; Est GFR (Non-African American) 143.6 ml/min; Glucose 94 mg/dl (70-99(Fasting)); Potassium 3.6 mmol/L (3.5-5.1); Sodium 137 mmol/L (136-145)
[2023-02-18] MEDS: PRENATAL VITAMIN 1 TAB PO SCH (09:00)
[2023-02-18] MEDS ORDERED: cefTRIAXone SODIUM 1,000 MG in DEXTROSE 5 % MINI-B 50 ML IV ONE (12:00)
--- NOTE | 2023-02-18 19:10 | Discharge Summary ---
Date of Service February 18, 2023 Admission HPI Per Admitting Provider Pt is 27 yo EGA 7wks by FTUS presenting with fever and abdominal pain. Pt states she has had ongoing subjective fevers, chills, lower abdominal pain, dysuria, urinary frequency, nausea for past 3-4 days. She did have several bouts of NBNB emesis including 2 today. She has had poor oral intake during this time. She came to ER today due to intolerable pain. Pt arrived to ER tachycardic to 100s-120s and febrile to 38.4 C. Initial evaluation significant for WBC 15, Na 131, TSH 0.089, free T4 0.92, HCG 113,026, UA with +LE, WBCs, bacteria. Renal US wnl, US with single intrauterine . ER interventions include ceftriaxone 1g, Tylenol 1000 mg IV, NSS 1L bolus. At present, pt reports mild improvement in pain since Tylenol administration. She states she had some thyroid cyst/abnormality 3-4 years ago in [facility] for which she was treated with months of medication delivered as injection, believes medication may have started with "P" but cannot recall accurately. Principal Diagnosis pyelonephritis w sepsis Discharge Exam gen aaox3 pleasant nad heent nc at mmm breathing unlabored no accessory muscles good effort skin no rashes no pallor or icterus neuro no focal deficits Discharge Data Allergies Allergy/AdvReac Type Severity Reaction Status Date / Time No Known Allergies Allergy Unverified 02/15/23 20:17 Consultations 02/15/23 19:42 Consult Obstetrics Routine ED Decision to Admit Stat Ordered Studies 02/15/23 US OB transvaginal Stat 02/15/23 16:06 US OB <= 14 weeks fetus Stat US renal/blad retro comp Stat 02/16/23 US thyroid Routine Hospital Course (1) Urinary tract infection: -Febrile, leukocytosis, tachycardic- meeting SIRS criteria on admission, associated infected urinalysis -Sepsis secondary to suspected urinary source in patient -Ceftriaxone --> home on PO cefdinir - urine jackson sensitive E Coli, blood cultures negative (2) Hyponatremia: - resolved (3) Low TSH level: - suspect normal related low TSH. Outpatient follow-up. Nodule noted and discussed with patientshe notes that she had a [facility] a [facility]owe discussed that if it was the same nodule and its the same size, she may not need another biopsy, but we will need to obtain records, otherwise default plan would be since it is greater than a centimeter and FNA should be done at some point, although certainly not urgently. (4) : Ultrasound reassuring Plan FENGI: Regular Code status: Full DVT prophylaxis: Low-risk, ambulation Isolation: None Disposition: home, outpt f/u Total Time Total Time Spent Total Time Spent (In Minutes): <30 Discharge Plan Discharge Items Patient Disposition: Home - Self-Care Reason For Visit: UTI, Discharge Diagnosis: kidney infection (improving) Activity: Resume your previous activity Non-emergency contact: Primary Care Provider and Short Piece Handler Call non-emergency contact if: you have any medication questions, your symptoms worsen and you have a fever Follow-up/Referrals: PCP,NO [Primary Care Provider] - Diet: Regular Addtl Attending Provider Instructions: Pyelonephritis (kidney infection) - the reason you are so sick with this urinary tract infection was that all sig ns pointed towards a kidney infection. These do tend to make people feel very ill for several days before they start to get betterwhich was the case with you. Fortunately the enormous majority of people get totally better from these kind of infections, and they leave no lasting "fall out" and everything suggest that you will get totally better from this. - We will treat with antibiotics for a total of 10 days (he will have had 4 days of IV Rocephin (ceftriaxone) here in the hospital, and we will finish out a course of treatment with another 6 days of Omnicef (cefdinir) 300 mg in the morning and at night, your first dose of the pill antibiotic will be tomorrow morning - as we have discussed, it will probably take most of this week for symptoms such as the flank pain and some intermittent nausea/poor appetite to improve, but I expect those symptoms all improve over the next week. It may take a month before things like fatigue and just overall feeling rundown get better congratulations on your ! The [employer] [employer] group should be getting you set up to establish care in the office. As far as "proof of " your ultrasound on 02/15/2023 showed an intrauterine measuring somewhere (depending on the dimensions measured)between 7 weeks and 2 days and 7 weeks and 4 days. as we discussed, sign up for the patient portal so that you have direct access to all of your information, although I also asked that we send you with a printed report of your ultrasound as well. Incidentally you did have a thyroid nodulethyroid antibody tests have been sent, and will be back sometime this coming week. Your thyroid ultrasound showed a 15 mm left thyroid noduleas we discussed, it is probable that this is what was biopsied a year ago. If not, while it is not very concerning, "by rule" any thyroid nodule greater than a centimeter does necessitate a biopsy to be safebut I suspect this is already been done and we just need to compare records to be sure. If you are able to get your records from back home that would be very helpful! Pending Studies at Discharge: No Stand-Alone Forms: My [facility], Smoking Cessation Medications and DC Order Prescriptions: New cefdinir 300 mg capsule 300 mg PO BID 6 Days Qty: 12 0RF Continued PNV cmb#95-ferrous fumarate-FA [] 28 mg iron- 800 mcg Tablet 1 tab PO DAILY Rx Instructions: unknown strenght Stomach Settle Gumies 2 tabs PO QAM PRN (Reason: Nausea) Discharge Orders: Discharge Order (Routine); Ordered 02/18/23 Ordered By: Wolfgang Shannon/Other Patient Handouts: Urinary Tract Infections in Women, ED Pyelonephritis, Female (Adult) Admission Data Admit Date/Time: 02/15/23 20:39 Attending Provider: Wolfgang Liu Admit Provider: Jeremie Vasquez Primary Care Provider: PCP,NO Other Providers: Riley Chamberlain ; Robina Landis Other Interventions: Discharge Summary Assessment (RN) Last Done: 02/18/23 12:03 Coding Level of Care Code 60675 IN/OBS DISCH 30 MIN/LESS Diagnoses Urinary tract infection N39.0 Hyponatremia E87.1 Low TSH level R79.89 Z34.90
[2023-02-20 17:02] LABS: Microsomal Ab 1 IU/mL (<9); TSI <89 % baseline (<140); Thyroglobulin Antibodies <1 IU/mL (< or = 1)
== END 2023-02-18 13:30 | disposition home or self-care (01) | DRG 831 ==
LOC: ED 15:56 → SUATTDRO 20:39 → EDINP 20:39 → 3N 21:47